=== PATIENT | male | born 2000 | race Caucasian/White ===

== ENCOUNTER 2022-05-30 10:12 | Outpatient (CLI) | payer OTHER, SELFPAY | END 2022-05-30 10:13 | disposition home or self-care (01) | LOC: INJ CL 10:14 | PROVIDERS: PCP Surgery; Visit Provider Family Medicine | DX: M54.16 Radiculopathy, lumbar region (principal); M51.26 Other intervertebral disc displacement, lumbar region | CPT/HCPCS: 62323; J0702; Q9966 ==